=== PATIENT | male | born 1970 | race Caucasian/White ===

== ENCOUNTER 2024-06-18 11:24 | Emergency (ER) | payer BC, SELFPAY ==
[2024-06-18 11:29] VITALS: BP 216/113
[2024-06-18 11:44] VITALS: BMI 27.1
[2024-06-18 11:46] VITALS: BP 152/91
[2024-06-18 11:54] LABS: % Basophils 0.6 % (0-2); % Eosinophils 0.8 % (0-6); % Immature Granulocytes 0.2 % (0-0.5); % Monocytes 9.3 % (1.7-9.3); % Neutrophils 62.1 % (42.2-75.2); Absolute Lymphocytes 1.3 10^3/uL (1.2-3.4); Absolute Monocytes 0.5 10^3/uL (0.1-0.6); Hematocrit 36.4 % (39.0-52.0); Hemoglobin 13.4 g/dL (13.0-18.0); Mean Corp Hgb Conc. 36.8 g/dL (33.0-37.0); Mean Corpuscular Hgb 30.2 pg (27.0-31.0); Mean Corpuscular Volume 82.2 fL (80.0-94.0); Nucleated Red Blood Cells % 0 % (-); Platelet Count 203 10^3/uL (130-400); Red Blood Cell Count 4.43 10^6/uL (4.70-6.10); Red Cell Dist. Width 13.9 % (11.5-14.5); White Blood Cell Count 4.9 10^3/uL (4.8-10.8)
[2024-06-18 12:00] VITALS: BP 141/88
[2024-06-18 12:06] LABS: ALT (SGPT) 22 U/L (0-50); AST (SGOT) 29 U/L (17-59); Albumin 4.7 g/dl (3.5-5.0); Alkaline Phosphatase 58 U/L (38-126); Blood Urea Nitrogen 9 mg/dl (9-20); Calcium 9.3 mg/dl (8.4-10.2); Carbon Dioxide 23 mmol/L (22-30); Chloride 102 mmol/L (98-107); Estimated Creatinine Clearance 115 ml/min; Glucose 112 mg/dl (70-99); Potassium 3.9 mmol/L (3.5-5.1); Sodium 134 mmol/L (135-145); Total Bilirubin 0.8 mg/dl (0.2-1.3); Total Protein 7.1 g/dl (6.3-8.2); eGFR > 60.00
[2024-06-18 12:07] LABS: INR 1.05; PT 13.5 Sec (11.4-14.6)
--- NOTE | 2024-06-18 12:11 | ED.GENMED ---
History of Present Illness
<Gisell Hawkins INDUCTION COORDINATION POWER ENGINEER - Last Filed: 06/18/24 20:31>
General
Chief Complaint: Rectal Bleeding
Source: patient
Exam Limitations: none
Time Seen by Provider: 06/18/24 12:10
Nursing documentation reviewed up to this point in time: agreed with
History of Present Illness
History of Present Illness:
53-year-old male with history of GERD, hemorrhoids presents with rectal bleeding constant since 7:30 this a.m. Had two normal BMs this a.m., both brown, a little bleeding after the first one then significant bleeding after the second and bleeding
has not stopped. No pain with the BMs. Denies weakness, dizziness, SOB, CP, abdominal pain. Denies having any recent hemorrhoids.
Past History
<Gisell Hawkins, INDUCTION COORDINATION POWER ENGINEER - Last Filed: 06/18/24 20:31>
Past History
ED Past Medical History: GERD
ED Past Surgical History: Orthopedic
Social History
Tobacco: Vaping
Alcohol: None
Personal:
Living: with family
Employment: Employed
Review of Systems
<Gisell Hawkins, INDUCTION COORDINATION POWER ENGINEER - Last Filed: 06/18/24 20:31>
Review of Systems
Allergies reviewed?: Yes
Unable to obtain full review of systems at this time due to: dementia
All Other Systems: ROS reviewed and negative except as documented in HPI and ROS
Constitutional: Denies fever or fatigue
Respiratory: Denies trouble breathing
Cardiac: Denies chest pain
ABD/GI: Denies abdominal pain, nausea, vomiting, diarrhea, constipated, black stools or anorexia
: Denies dysuria or difficulty voiding
Musculoskeletal: Reports no symptoms
Skin: Reports no symptoms
Neurological: Reports no symptoms
Phy Exam
<Gisell Hawkins, INDUCTION COORDINATION POWER ENGINEER - Last Filed: 06/18/24 20:31>
Physical Exam
Physical Exam:
GENERAL: No acute distress. A&Ox3.
CONSTITUTIONAL: Afebrile.
EYES: PERRL, conjunctivae normal
ENMT: moist mucus membranes, Pharynx nl
RESPIRATORY: Regular respirations, nonlabored, lungs clear.
CARDIOVASCULAR: Regular rate and rhythm, no murmurs, no rubs.
GI: Soft, nontender, normal BS
Rectal: Two external hemorrhoids, one flesh colored, one large, thrombosed, oozing BRB. Soaked through his clothing and bed pad. Dripping blood into toilet.
MUSCULOSKELETAL: Moves with ease. Well perfused.
SKIN: Warm, dry, pink
PSYCH: Normal mood and affect. Well kept, interactive and appropriate
NEUROLOGIC: Awake, alert and oriented. No focal neurological deficits
Course
<Gisell Hawkins, INDUCTION COORDINATION POWER ENGINEER - Last Filed: 06/18/24 20:31>
Orders/Labs/Results
Orders:
Orders
06/18/24 11:45
Type+Screen Urgent
CMP [Comprehensive Metabolic Panel] Urgent
Complete Blood Count/With Diff Urgent
PT/INR [Prothrombin Time] Urgent
06/18/24 12:37
Tranexamic Acid 1,000 mg .ROUTE .STK-MED ONE
Abnormal Lab Results
06/18/24
11:45
RBC 4.43 L 10^6/uL
(4.70-6.10)
Hct 36.4 L %
(39.0-52.0)
Sodium 134 L mmol/L
(135-145)
Glucose 112 H mg/dl
(70-99)
06/18/24 11:45
06/18/24 11:45
Vital Signs
Initial and Last Documented VS:
Initial Vital Signs
Temp Pulse Resp BP Pulse Ox
98.1 F 111 17 216/113 97
06/18/24 11:29 06/18/24 11:29 06/18/24 11:29 06/18/24 11:29 06/18/24 11:29
Last Documented Vital Signs
Temp Pulse Resp BP Pulse Ox
98.1 F 69 18 145/84 97
06/18/24 11:29 06/18/24 13:45 06/18/24 13:45 06/18/24 13:34 06/18/24 11:29
<Lasha Cortez DO - Last Filed: 06/18/24 13:31>
Orders/Labs/Results
Orders:
Orders
06/18/24 11:45
Type+Screen Urgent
CMP [Comprehensive Metabolic Panel] Urgent
Complete Blood Count/With Diff Urgent
PT/INR [Prothrombin Time] Urgent
06/18/24 12:37
Tranexamic Acid 1,000 mg .ROUTE .STK-MED ONE
Abnormal Lab Results
06/18/24
11:45
RBC 4.43 L 10^6/uL
(4.70-6.10)
Hct 36.4 L %
(39.0-52.0)
Sodium 134 L mmol/L
(135-145)
Glucose 112 H mg/dl
(70-99)
06/18/24 11:45
06/18/24 11:45
Vital Signs
Initial and Last Documented VS:
Initial Vital Signs
Temp Pulse Resp BP Pulse Ox
98.1 F 111 17 216/113 97
06/18/24 11:29 06/18/24 11:29 06/18/24 11:29 06/18/24 11:29 06/18/24 11:29
Last Documented Vital Signs
Temp Pulse Resp BP Pulse Ox
98.1 F 69 18 145/84 97
06/18/24 11:29 06/18/24 13:45 06/18/24 13:45 06/18/24 13:34 06/18/24 11:29
<Gisell Hawkins INDUCTION COORDINATION POWER ENGINEER - Last Filed: 06/18/24 20:31>
MDM/Problems Addressed
Differential Diagnosis Includes:
thrombosed, bleeding hemorrhoid, fissure
MDM/Problems Addressed:
53-year-old male with history of GERD, hemorrhoids presents with rectal bleeding constant since 7:30 this a.m. Had two normal BMs this a.m., both brown, a little bleeding after the first one then significant bleeding after the second and bleeding
has not stopped. No pain with the BMs. Denies weakness, dizziness, SOB, CP, abdominal pain. Denies having any recent hemorrhoids.
Afebrile, NAD
CBC normal
CMP normal
Two protruding hemorrhoids, one oozing BRB
Dr. Cortez in to examine pt
TXA dressing and Gelfoam applied
Consulted Colorectal surgeon Dr. Fierro who will have pt seen after this weekend in 3-4 days.
1:30 p.m.
In to re evaluate: after TXA, both hemorrhoids are no longer visible. No active bleeding.
Pt instructed to call Colorectal office for appointment.
<Gisell Hawkins INDUCTION COORDINATION POWER ENGINEER - Last Filed: 06/18/24 20:31>
*Critical Care Note
Total Time (30-74mins, 75-104mins- exclusive of procedures): Not Applicable
ED Attending Note
<Gisell Hawkins, INDUCTION COORDINATION POWER ENGINEER - Last Filed: 06/18/24 20:31>
-
Portions of this chart may have been created with voice recognition software.� Occasional wrong word or��sound alike� substitutions may have occurred due to the inherent limitations of voice recognition software.
<Lasha Cortez, - Last Filed: 06/18/24 13:31>
ED Attending Note
Patient seen and examined by attending physician: Yes
I performed the substantive portion of visit, reviewed & personally made and approve the management plan that is documented in note by myself or GEOVANNI.: Yes
I performed a history and physical exam of patient and discussed management with resident, I reviewed resident's note and agree with documented findings and plan of care.: Yes
ED Attending Note:
I evaluated patient at bedside. There is no active bleeding but he does have a thrombosed external hemorrhoid that was likely recently bleeding. He is hemodynamically stable however he was rather hypertensive upon arrival.
Discharge Plan
Departure
Patient Disposition: Home (Routine Discharge)
Date of Disposition: 06/18/24
Time of Disposition: 13:48
Patient with high blood pressure during this ER visit?: No
Condition: Good
Discharge Problem:
Bleeding external hemorrhoids
Instructions: Hemorrhoids (DC)
Prescriptions:
No Action
metronidazole 500 MG tablet
500 mg PO TID Qty: 30 0RF
ciprofloxacin HCl 500 MG tablet
500 mg PO BID Qty: 20 0RF
Referrals:
Hugh Crocker MD [Active] - Call in 1-3 days for appt
Mauro Foote, [Family Provider] -
Nickolsa Fierro MD [Active] - Call in 1-3 days for appt
Activity Restrictions/Additional Instructions:
As we discussed, I spoke with the colorectal surgeon Dr. Fierro. He states he gave his medical office asst heads up to watch for your call. He states that Dr. Crocker has an opening on Friday if you could call the office and make an appointment.
If you have significant bleeding like you did today, return here over the weekend.
Interventions
Interventions:
*Risk Screen - Suicide Last Done: 06/18/24 11:28
*General Assessment Last Done: 06/18/24 11:28
*Neglect/Abuse Screening Last Done: 06/18/24 11:28
*ED COVID-19 Vaccine History Last Done: 06/18/24 11:28
*Nursing Disposition Last Done: 06/18/24 14:01
KJ-Jkkqjk-Pgmjuhyiep Assessment Last Done: 06/18/24 13:13
ED- Cardiac Assessment Last Done: 06/18/24 13:13
ED- Pulmonary Assessment Last Done: 06/18/24 13:13
Discharge Date and Time
Discharge Date/Time: 06/18/24 14:06
Print Language: [place]
[2024-06-18 13:02] VITALS: BP 122/101
[2024-06-18 13:34] VITALS: BP 145/84
== END 2024-06-18 14:06 | disposition home or self-care (01) ==
LOC: EMR 11:24
PROVIDERS: EMERGENCY PHYSICIAN Emergency Medicine; FAMILY PHYSICIAN Family Medicine
DX: K64.4 Residual hemorrhoidal skin tags (principal); K21.9 Gastro-esophageal reflux disease without esophagitis; F17.290 Nicotine dependence, other tobacco product, uncomplicated; Z87.19 Personal history of other diseases of the digestive system
CPT/HCPCS: 99283; 80053; 85025; 85610; 86850; 86900; 86901